=== PATIENT | female | born 1970 | race Caucasian/White ===

== ENCOUNTER 2016-09-12 20:36 | Emergency (ER) | payer BC ==
[~2016-09-12] VITALS: Ht 162.6 cm; Wt 90.3 kg
[~2016-09-12 20:36] MED LIST: ALBUS PO; ASPI81TA82 PO; CHOL50006 PO; CYMB60CA PO; FERR325T PO; GLUCTAB PO; GLYB1TAB50 PO; MELA10TA3 PO; PREGPOW; VITA100020 IM; XANA0.5T PO; ZYRT10TA12 PO
[2016-09-12 20:40] VITALS: BP 112/71; PULSE 103; RESP 15; TEMP 100.1; O2SAT 98
[2016-09-12 21:04] LABS: BLOOD, URINE TRACE (NEG); GLUCOSE,URINE 500 mg/dL (NEG); KETONE, URINE TRACE mg/dL (NEG); PH, URINE 5.5 (5.0-8.5)
[2016-09-12 21:09] LABS: NITRITE,URINE POS (NEG)
[2016-09-12 21:10] LABS: BACTERIA, URINE MOD /hpf; COMMENT (UR) CULTURE INDICATED; CULTURE IF INDICATED CULTURE INDICATED; URINE COLOR YELLOW (YELLW/STRAW)
[2016-09-12] MEDS ORDERED: GLYB2.5T3 PO (22:09)
[2016-09-12] MEDS ORDERED: METF500 PO (22:09)
[2016-09-12] MEDS ORDERED: CYMB30CA PO (22:12)
[2016-09-12] MEDS ORDERED: ERGO1CAP10 PO (22:12)
[2016-09-12] MEDS ORDERED: MELA5TAB15 PO (22:13)
[2016-09-12] MEDS ORDERED: ZYRT10CA PO (22:13)
[2016-09-12] MEDS ORDERED: FERR1TAB58 PO (22:13)
[2016-09-12] MEDS ORDERED: MACR100C2 PO ×2 (22:24→22:29)
--- NOTE | 2016-09-12 22:24 | PD ---
HPI Chief Complaint: Complaint Time Seen by Provider: 22:05 Travel History International Travel<30 days: No Contact w/Intl Traveler<30days: No Traveled to known affect area: No History of Present Illness HPI The patient is a 45-year-old female that complains of dysuria, frequency and urgency since Friday. She was diagnosed at an urgent care center and was put on Bactrim DS, she is taken this twice daily for 3 days now. She states she is getting worse with fever without nausea or vomiting. She does complain of flank pain. PFSH Past Medical History Anemia: Yes Arthritis: Yes Asthma: Yes Anxiety: Yes Depression: Yes Diabetes: Yes Patient Takes Glucophage: Yes (1500 09/12/16) Diminished Hearing: No Medical other: Yes (IVC FILTER - KIDNEY) Respiratory: Yes (BLOOD CLOT IN LUNG 2008) Pneumonia: Yes Tetanus Vaccination: Unknown Influenza Vaccination: Yes ?: Not LMP: 2 WEEKS Past Surgical History Abdominal Surgery: Yes (INTERNAL HEMMORAGE X2) Section: Yes Gynecologic Surgery: Yes ( X 3) Tonsillectomy: Yes Other Surgery: Yes (BARIATRIC AND TUMMY TUCK) Social History Alcohol Use: No Tobacco Use: No Substance Use: No Allergies-Medications (Allergen,Severity, Reaction): Coded Allergies: No Known Allergies (Unverified , 09/12/16) Reported Meds & Prescriptions Reported Meds & Active Scripts Active Reported Glyburide 2.5 Mg Tab 2.5 Mg PO TID Take with meals at the same time each day Glucophage (Metformin HCl) 500 Mg Tab 500 Mg PO TIDPC With meals Review of Systems Except as stated in HPI: all other systems reviewed are Neg Physical Exam Narrative GENERAL: Well-nourished, well-developed patient in moderate apparent distress with her urinary symptoms. Her vital signs show temperature 100.1 with heart rate of 103 but are otherwise normal. SKIN: Focused skin assessment warm/dry. HEAD: Normocephalic. EYES: No scleral icterus. No injection or drainage. NECK: Supple, trachea midline. No JVD or lymphadenopathy. CARDIOVASCULAR: Regular rate and rhythm without murmurs, gallops, or rubs. RESPIRATORY: Breath sounds equal bilaterally. No accessory muscle use. GASTROINTESTINAL: Abdomen soft, with tenderness to the right flank and midline suprapubic area to direct palpation, nondistended. MUSCULOSKELETAL: No cyanosis, or edema. BACK: Nontender without obvious deformity. No CVA tenderness. Data Data Last Documented VS Vital Signs Date Time Temp Pulse Resp B/P Pulse Ox O2 Delivery O2 Flow Rate FiO2 09/12/16 22:02 103 18 09/12/16 20:40 100.1 112/71 98 Orders Urinalysis - C+S If Indicated (09/12/16 20:45) Ed Urine Pregnancytest Poc (09/12/16 20:45) Urine Culture (09/12/16 20:48) Labs Laboratory Tests Test 09/12/16 20:48 Urine Color YELLOW Urine Turbidity SLIGHT Urine pH 5.5 Urine Specific Oneco 1.026 Urine Protein TRACE mg/dL Urine Glucose (UA) 500 mg/dL Urine Ketones TRACE mg/dL Urine Occult Blood TRACE Urine Nitrite POS Urine Bilirubin NEG Urine Leukocyte Esterase SMALL Urine RBC 4-9 /hpf Urine WBC 50-99 /hpf Urine Squamous Epithelial 6-8 /hpf Cells Urine Bacteria MOD /hpf Microscopic Urinalysis Comment CULTURE INDICATED MDM Medical Decision Making Medical Screen Exam Complete: Yes Emergency Medical Condition: Yes Medical Record Reviewed: Yes Differential Diagnosis Cystitis, pyelonephritis, urinary stone Narrative Course The patient has both cystitis and pyelonephritis. She also has a failure of Septra to adequately treat this infection. Plan: The patient be put on Macrobid twice daily for 10 days. Diagnosis Primary Impression: Pyelonephritis Additional Impression: Cystitis Additional Instructions: As we discussed, it is necessary to increase her liquid intake to flush the germs away from your kidneys and establish a good urinary flow through your kidneys. The Macrobid is one tablet twice daily for 10 days. Admission to the hospital should be considered if you have nausea and vomiting. Follow-up with her primary care physician next week. Med/Other Pt SpecificInfo: Prescription(s) given Scripts Nitrofurantoin Monohydrate Macrocrystals (Macrobid)100 Mg Isq275 Mg PO BID 10 Days Ref 0 Prov:Rodolfo Ruelas MD 09/12/16 Disposition: 01 DISCHARGE HOME Condition: Stable Rodolfo Ruelas MD September 12, 2016 22:24
[2016-09-12] MEDS ORDERED: NITROFURANTOIN MONOHYD MACROCR 100 MG CAP PO ONE (22:30)
== END 2016-09-12 22:44 | disposition home or self-care (01) ==
LOC: PHEFT 20:36
DX: N12 Tubulo-interstitial nephritis, not specified as acute or chronic (principal); N30.90 Cystitis, unspecified without hematuria; D64.9 Anemia, unspecified; M19.90 Unspecified osteoarthritis, unspecified site; J45.909 Unspecified asthma, uncomplicated; E11.9 Type 2 diabetes mellitus without complications; F32.9 Major depressive disorder, single episode, unspecified; F41.9 Anxiety disorder, unspecified; Z79.899 Other long term (current) drug therapy
CPT/HCPCS: 81001; 84703; 87077; 87086; 87186; 99283